=== PATIENT | female | born 1985 | race African-American/Black ===

== ENCOUNTER 2023-08-28 13:49 | Emergency (ER) | payer SELFPAY ==
[~2023-08-28] VITALS: Ht 165.1 cm; Wt 68.2 kg
[~2023-08-28 13:49] MED LIST: AMOXICILLIN 8751 TAB PO; CEPHALEXIN500 M1 PO; DOXYCYCLINE 10100 MG PO; IBU600 MG PO; LORTAB 5/500 501 TAB PO; NO HOME MEDICATIONS; NORCO 325 MG-51 TAB PO; PERCOCET 325 MG1 TA2 PO; PRENATAL1 TA7 PO; ROBAXIN 75750 MG/TAB PO; TESSALON PERLE200 MG PO; ULTRAM 50MG TAB50 MG PO; ZITHROMAX Z PA250 MG PO; ZOFRAN 4MG T4 MG/TAB PO
[2023-08-28 14:00] VITALS: BP 124/86; TEMP 98.9
[2023-08-28] MEDS ORDERED: PREDNISONE20 MG PO (16:24)
[2023-08-28 16:53] VITALS: PULSE 89
== END 2023-08-28 16:51 | disposition home or self-care (01) ==
LOC: COL.ER 13:49
DX: S64.11XA Injury of median nerve at wrist and hand level of right arm, initial encounter (principal); W50.1XXA Accidental kick by another person, initial encounter